=== PATIENT | female | born 1995 | race Caucasian/White ===

== ENCOUNTER 2016-12-12 12:21 | Emergency (ER) | payer BC ==
[2016-12-12 12:28] VITALS: BP 121/66; PULSE 57; RESP 18; TEMP 97.7; O2SAT 96
--- NOTE | 2016-12-12 13:10 | EDPHY ---
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 She has not had any recent change in her mileage or footwear. She developed pain in the ball of her left foot this week on Tuesday and was seen Tuesday and Tuesday at [facility] with a negative x-ray on Tuesday. She presents with continued pain in the foot which is really primarily with walking or standing on it. Does not radiate. Not associated with weakness or numbness in the foot or skin changes. REVIEW OF SYSTEMS: No ankle leg or knee symptoms. no chest pain or shortness of breath. PAST MEDICAL HISTORY: Previous concussion 2 years ago Social history: Runner as noted above. General Appearance: Alert and conversant, cooperative. Patient has normal calf, ankle, and Achilles. Number dorsalis pedis pulse and no skin discoloration, redness, laceration, swelling, or lymphangitis. Normal motor and sensory in the foot but tender to palpation on the ball of the left foot. No deformity noted. Not tender on the dorsum. Ankle stable. Compartments soft in foot and leg. Emergency Department course/MDM: We discussed not repeating x-ray as she had one which was negative, at the orthopedic office this week on Tuesday, she is in agreement. Differential discussed in detail including possible foot sprain versus stress fracture. I do not think she has DVT or acute infection. Plan for hard-soled shoe, orthopedic referral. She understands that I will not be able to make a definitive diagnosis here today in the emergency department. Smoking Status: Never smoked Constitutional: Initial Vital Signs Temperature (C) 36.5 C 12/12/16 12:23 Heart Rate 57 L 12/12/16 12:23 Respiratory Rate 18 12/12/16 12:23 Blood Pressure 121/66 H 12/12/16 12:23 O2 Sat (%) 96 12/12/16 12:23 O2 Delivery Mode Room Air Allergies/Adverse Reactions: amoxicillin Allergy (Intermediate, Unverified 08/08/15 21:03) MDM/Departure - Depart Disposition: Home, Routine, Self-Care Clinical Impression: Sprain of foot, left Qualifiers: Encounter type: initial encounter Qualified Code(s): S93.602A - Unspecified sprain of left foot, initial encounter Condition: Good Instructions: Foot Sprain (ED) Additional Instructions: Hard shoe for comfort while walking. Please get a copy of your x-ray on computer disc for your follow-up orthopedic appointment. It is possible that you of a foot sprain, although it is also possible that you have an injury not seen on x-ray such as a stress fracture. Referrals: Joe Tatum MD [Medical Doctor] - As per Instructions (ortho referral; call Tuesday to be seen this week)
== END 2016-12-12 13:15 | disposition home or self-care (01) ==
DX: S93.602D Unspecified sprain of left foot, subsequent encounter (principal); X58.XXXD Exposure to other specified factors, subsequent encounter
CPT/HCPCS: L3260